=== PATIENT | female | born 1960 | race American Indian/Alaskan Native ===

== ENCOUNTER 2016-07-05 11:13 | Observation (INO) | payer MEDICAID ==
[2016-07-05 11:16] VITALS: BMI 24.1
--- NOTE | 2016-07-05 11:58 | C.PDOC ---
History Of Present Illness 55 y/o female, with PMHx of HTN and tobacco use, presents to ED with complaint of chest pain since yesterday. Patient reports episodes of sharp, left-sided chest pain, and cannot identify what brought them on or what makes them worse. She denies associated shortness of breath but reports that she felt like she was going to pass out yesterday with the onset of symptoms. Reports non- productive cough but denies fever. Patient states she has had no past cardiac workup; denies history of diabetes. Of note, patient also complains of atraumatic right elbow pain x 2 weeks. Also c/o constipation, associated with bright red blood per rectum with straining (hx of hemorrhoids). Denies abdominal pain, headache, dizziness, lightheadedness, nausea, vomiting, diarrhea , urinary symptoms. Time Seen by Provider: 07/05/16 11:39 Chief Complaint (Nursing): Abdominal Pain History Per: Patient History/Exam Limitations: no limitations Onset/Duration Of Symptoms: Days Current Symptoms Are (Timing): Still Present Associated Symptoms: Chest Pain. denies: Fever, Chills, Diarrhea Recent travel outside of the [place]: No Past Medical History Reviewed: Historical Data, Nursing Documentation, Vital Signs Vital Signs: Last Vital Signs Temp 97.9 F 07/05/16 11:17 Pulse 103 H 07/05/16 11:17 Resp 18 07/05/16 11:17 BP 140/91 H 07/05/16 11:17 Pulse Ox 100 07/05/16 12:17 - Medical History PMH: HTN Family History: States: Unknown Family Hx - Social History Hx Alcohol Use: No Hx Substance Use: No - Immunization History Hx Tetanus Toxoid Vaccination: No Hx Influenza Vaccination: No Hx Pneumococcal Vaccination: No Review Of Systems Except As Marked, All Systems Reviewed And Found Negative. Constitutional: Negative for: Fever, Chills Eyes: Negative for: Pain, Vision Change Cardiovascular: Positive for: Chest Pain, Light Headedness. Negative for: Palpitations, Orthopnea, Edema Respiratory: Positive for: Cough. Negative for: Shortness of Breath, SOB with Excertion, Sputum, Wheezing Gastrointestinal: Positive for: Other (bright red blood with straining). Negative for: Nausea, Vomiting, Abdominal Pain, Diarrhea, Constipation Genitourinary: Negative for: Dysuria, Hematuria, Pelvic Pain Musculoskeletal: Positive for: Other (right elbow pain ). Negative for: Neck Pain Skin: Negative for: Rash Neurological: Negative for: Weakness, Numbness, Headache, Dizziness Psych: Negative for: Depression Physical Exam - Physical Exam Appears: Well, Non-toxic, No Acute Distress Skin: Normal Color, Warm, Dry Head: Atraumatic, Normacephalic Eye(s): bilateral: Normal Inspection, PERRL, EOMI Neck: Supple Chest: Symmetrical Cardiovascular: Rhythm Regular, No Murmur Respiratory: Normal Breath Sounds, No Accessory Muscle Use, No Rales, No Rhonchi , No Wheezing Gastrointestinal/Abdominal: Soft, No Tenderness, No Mass, No Distention, No Guarding, No Rebound Back: Normal Inspection, No CVA Tenderness Extremity: Normal ROM, No Tenderness, No Pedal Edema, No Calf Tenderness, Capillary Refill (< 2 sec. ), No Deformity, No Swelling, Other (R arm: no tenderness or swelling to right elbow. Normal ROM. Distal pulses intact) Extremity: Bilateral: Atraumatic, Normal Color And Temperature Pulses: Left Radial: Normal, Right Radial: Normal Neurological/Psych: Oriented x3, Normal Speech, Normal Cognition Gait: Steady ED Course And Treatment ECG: Interpreted By Me ECG Rhythm: Sinus Rhythm ECG Interpretation: Normal Interpretation Of ECG: no ST/T wave changes, normal intervals Rate From EC (bpm) O2 Sat by Pulse Oximetry: 100 (RA) Pulse Ox Interpretation: Normal Medical Decision Making Medical Decision Making: Patient is complaining of chest pain, intermittent and sharp x 1 day. No prior cardiac workup and hx of HTN and tobacco use. Differential dx includes but not limited to: acs, pna, ptx, pe. Due to elevated heart rate on arrival, cannot use the perc rule to r/o pe. Will get ekg, labs, and cxray. Due to risk factors (age, htn, and tobacco use) combined with no prior cardiac evaluation, would recommend tele observation for chest pain if initial ED workup is negative Plan: * Aspirin 325mg * EKG, CXR * Bloodwork * Reassess Had extensive conversation with the patient about the need to follow-up as outpatient for constipation/blood per rectum for colonoscopy and chronic R elbow pain that could be tenditis. Instructed follow up with PMD for constipation and chronic right arm pain. Will do cardiac workup. 12:48PM Cxray negative for consolidation, infiltrate or ptx. No cardiomegaly. Pending labs. WIll sign out to Blaise Moeller MD to follow-up. Disposition - Disposition Disposition Time: 12:49 Condition: FAIR Additional Instructions: Follow up with your PMD for chronic R elbow pain. Follow-up with PMD for referral for colonoscopy due to hemorrhoids and rectal bleeding - Clinical Impression Clinical Impression: Rectal bleed, Elbow pain, right, Chest pain - Scribe Statement The provider has reviewed the documentation as recorded by the Ratna Jenkins Provider Scribe Attestation: All medical record entries made by the Ratna were at my direction and personally dictated by me. I have reviewed the chart and agree that the record accurately reflects my personal performance of the history, physical exam, medical decision making, and the department course for this patient. I have also personally directed, reviewed, and agree with the discharge instructions and disposition.
[2016-07-05] MEDS ORDERED: Aspirin 325 mg EC Tablets PO ONE (12:13)
[2016-07-05 12:41] LABS: BASO # 0.1 K/uL (0.0-0.2); BASO % 1.3 % (0.0-2.0); EOS # 0.3 K/uL (0.0-0.7); EOS % 2.8 % (0.0-4.0); HEMATOCRIT 42.1 % (34.0-47.0); LYMPH # 4.2 K/uL (1.0-4.3); LYMPH % 46.4 % (20.0-40.0); MEAN CELL VOLUME 86.4 fL (81.0-99.0); MEAN CORPUSCULAR HGB CONC 32.5 g/dL (33.0-37.0); MONO # 0.4 K/uL (0.0-0.8); MONO % 4.7 % (0.0-10.0); NRBC % 0.1 % (0.0-2.0); RED CELL DISTRIBUTION WIDTH 13.7 % (11.5-14.5); WHITE BLOOD COUNT 9.1 K/uL (4.8-10.8)
--- NOTE | 2016-07-05 12:48 | RAD ---
HISTORY: chest pain COMPARISON: No prior. FINDINGS: LUNGS: Mild venous congestion. PLEURA: No significant pleural effusion identified, no pneumothorax apparent. CARDIOVASCULAR: Normal. OSSEOUS STRUCTURES: No significant abnormalities. VISUALIZED UPPER ABDOMEN: Normal. OTHER FINDINGS: None. IMPRESSION: Mild venous congestion.
[2016-07-05 12:50] LABS: CHLORIDE 96 mmol/L (98-107)
[2016-07-05 12:51] LABS: SODIUM 141 mmol/L (132-148)
[2016-07-05 12:53] LABS: ALB/GLOB RATIO 1.3 (1.0-2.1); ALKALINE PHOSPHATASE 87 U/L (38-126); ALT/SGPT 15 U/L (9-52); AST/SGOT 17 U/L (14-36); BILIRUBIN,TOTAL 0.5 mg/dL (0.2-1.3); BLOOD UREA NITROGEN 10 mg/dL (7-17); CARBON DIOXIDE 26 mmol/L (22-30); GFR AFRICAN-AMERICAN > 60; TOTAL PROTEIN 6.9 g/dL (6.3-8.3)
[2016-07-05 12:54] LABS: CALCIUM 9.6 mg/dl (8.6-10.4); GLUCOSE,RANDOM 89 mg/dL (65-105)
--- NOTE | 2016-07-05 16:17 | CP.PCM.HP ---
History of Present Illness - History of Present Illness History of Present Illness: 55-year-old female with past medical history of hypertension and tobacco use presented to the ED with complaints of chest pain since yesterday. Patient reports episodes of sharp, left-sided chest pain and cannot identify what brought them on or what makes them worse. She denies associated shortness of breath but reports that she felt like she was going to pass out yesterday with the onset of symptoms. Reports nonproductive cough but denies fever. Patient states she has had no past cardiac workup, denies history of diabetes. Patient also complains of atraumatic right elbow pain since 2 week. Also complains of constipation associated with bright red blood per rectum with straining ( history of hemorrhoids). Denies abdominal pain, headache, dizziness, lightheadedness, nausea, vomiting, diarrhea, urinary symptoms. Present on Admission - Present on Admission Any Indicators Present on Admission: No Past Patient History - Past Social History Smoking Status: Light Smoker < 10 Cigarettes Daily - CARDIAC Hx Hypertension: Yes - MUSCULOSKELETAL/RHEUMATOLOGICAL Hx Musculoskeletal Disorders: Yes Hx Herniated Disk: Yes - PSYCHIATRIC Hx Substance Use: No - SURGICAL HISTORY Hx Surgeries: Yes Hx Herniorrhaphy: Yes Hx Orthopedic Surgery: Yes (BL foot surgery) Hx Tubal Ligation: Yes Meds Home Medications: Home Medication List Medication Instructions Recorded Confirmed Type Aspirin [Aspirin Chewable] 81 mg PO DAILY 07/07/16 Rx Famotidine [Pepcid] 20 mg PO BID #60 tab 07/07/16 Rx Isosorbide Mononitrate [Imdur] 60 mg PO DAILY #30 tab 07/07/16 Rx Losartan [Cozaar] 100 mg PO DAILY #30 tab 07/07/16 Rx Rosuvastatin Calcium [Crestor] 20 mg PO HS #30 tab 07/07/16 Rx Allergies/Adverse Reactions: Allergies Allergy/AdvReac Type Severity Reaction Status Date / Time No Known Allergies Allergy Verified 07/05/16 11:43 Physical Exam - Constitutional Appears: Well - Head Exam Head Exam: ATRAUMATIC, NORMAL INSPECTION, NORMOCEPHALIC - Eye Exam Eye Exam: EOMI, Normal appearance, PERRL Pupil Exam: NORMAL ACCOMODATION, PERRL - ENT Exam ENT Exam: Mucous Membranes Moist, Normal Exam - Neck Exam Neck exam: Positive for: Normal Inspection - Respiratory Exam Respiratory Exam: Decreased Breath Sounds - Cardiovascular Exam Cardiovascular Exam: REGULAR RHYTHM, +S1, +S2 - GI/Abdominal Exam GI & Abdominal Exam: Diminished Bowel Sounds, Soft - Rectal Exam Rectal Exam: Deferred Results - Vital Signs Recent Vital Signs: Last Vital Signs Temp 98 F 07/05/16 15:56 Pulse 88 07/05/16 15:56 Resp 19 07/05/16 15:56 BP 140/91 H 07/05/16 11:17 Pulse Ox 100 07/05/16 15:56 - Labs Result Diagrams: 07/05/16 12:37 07/05/16 12:37 Assessment & Plan (1) Chest pain Status: Acute (2) Chronic lower back pain Status: Acute (3) Elbow pain, right Status: Acute (4) Knee sprain Status: Acute (5) Rectal bleed Status: Acute - Assessment and Plan (Free Text) Plan: protonix lovenox rosuvastatin asp plavix sonia sme
[2016-07-05 18:12] VITALS: RESP 20
--- NOTE | 2016-07-05 18:32 | CON ---
DATE: 07/05/2016 REASON FOR CONSULTATION: Chest pain. HISTORY OF PRESENT ILLNESS: The patient is a 55-year-old -[place] female who has no signific ant prior cardiac history. She presented because of chest pain since yesterday, which is sharp in na ture. The patient denies any associated shortness of breath or radiation of chest discomfort. The p atient has history of rectal bleeding in the recent past. The patient underwent colonoscopy, but arredondo s not know the findings at that time. SOCIAL HISTORY: The patient is a smoker and occasional drinker. MEDICATIONS: The patient received aspirin 325 mg once a day. At home the patient is on own antihype rtensive agents as well as vitamin D. REVIEW OF SYSTEMS: No fever or chills. No vomiting or diarrhea. PHYSICAL EXAMINATION: GENERAL: The patient is a middle-aged female who does not appear to be in any acute distress. VITAL SIGNS: Blood pressure 140/91, heart rate 103, temperature 97.9, respiration 18. HEENT: Normocephalic. NECK: No JVD. CHEST: Clear. HEART: S1, S2 regular. EXTREMITIES: No edema. LABORATORY DATA: D-dimer is within normal limits. SMA-7 is within normal limits except for chloride of 96, anion gap of 23. One set of troponin is negative. CBC: WBC 9.1 hemoglobin 15.7, hematocrit 42.1, platelet count 281,000. Chest x-ray was unremarkable. EKG has not been located yet and I dave l review it once it is available. ASSESSMENT: 1. Chest pain, myocardial infarction is ruled out. 2. History of hypertension. 3. History of rectal bleeding in the past. RECOMMENDATIONS: Admit the patient to telemetry, monitor daily EKGs and serial cardiac enzymes. Sta rt aspirin 81 mg once a day and atenolol 25 mg once a day, Crestor 20 mg once a day. Obtain an echoc ardiogram and urine for drug screen. Gentry Wheeler MD cc: [id number] TT: 07/05/2016 18:30:57 Confirmation # [id number] Dictation # [id number] sakshi
--- NOTE | 2016-07-06 09:21 | CP.PCM.PN ---
Subjective - Date & Time of Evaluation Date of Evaluation: 07/06/16 Time of Evaluation: 11:40 - Subjective Subjective: clinically same Objective - Vital Signs/Intake and Output Vital Signs (last 24 hours): Temp Pulse Resp BP Pulse Ox 98.0 F 63 20 145/100 H 100 07/06/16 07:26 07/06/16 00:00 07/06/16 07:26 07/06/16 07:26 07/06/16 07:26 - Medications Medications: Current Medications Aspirin (Aspirin Chewable) 81 mg PO DAILY [facility] Atenolol (Tenormin) 25 mg PO DAILY [facility] Last Admin: 07/05/16 16:41 Dose: 25 mg Enoxaparin Sodium (Lovenox) 40 mg SC DAILY [facility] Famotidine (Pepcid) 20 mg PO BID [facility] Last Admin: 07/05/16 18:01 Dose: 20 mg Pneumococcal Polyvalent Vaccine (Pneumovax 23 Vaccine) 0.5 ml IM .ONCE ONE Stop: 07/08/16 10:01 Rosuvastatin Calcium (Crestor) 20 mg PO HS [facility] Last Admin: 07/05/16 21:02 Dose: 20 mg - Constitutional Appears: Well - Head Exam Head Exam: ATRAUMATIC, NORMAL INSPECTION, NORMOCEPHALIC - Eye Exam Eye Exam: EOMI, Normal appearance, PERRL Pupil Exam: NORMAL ACCOMODATION, PERRL - ENT Exam ENT Exam: Mucous Membranes Moist, Normal Exam - Neck Exam Neck Exam: Full ROM, Normal Inspection. absent: Lymphadenopathy - Respiratory Exam Respiratory Exam: Decreased Breath Sounds - Cardiovascular Exam Cardiovascular Exam: REGULAR RHYTHM, +S1, +S2 - GI/Abdominal Exam GI & Abdominal Exam: Soft, Diminished Bowel Sounds - Rectal Exam Rectal Exam: Deferred Assessment and Plan - Assessment and Plan (Free Text) Plan: Consultation with retail attendant ecg negative for TN CXR Mild venous congestion Aspirin Atenolol Crestor Lovenox
[2016-07-06] MEDS ORDERED: Pantoprazole 40 mg EC Tab PO SCH (10:00)
[2016-07-06] MEDS: Enoxaparin 40 mg Syringe SC SCH (10:02)
--- NOTE | 2016-07-06 11:08 | CP.PCM.PN ---
<Lizy Espinoza - Last Filed: 07/06/16 10:52> Subjective - Date & Time of Evaluation Date of Evaluation: 07/06/16 Time of Evaluation: 09:00 - Subjective Subjective: Medicine Progress Note Patient seen and examined. Patient states that her chest pain is still present but that it has improved since admission yesterday. The patient was informed that her UDS was positive for cocaine and educated on the risks of using cocaine while on a beta-liliana. Patient states that she does not use cocaine but that her cigarettes may have been laced because her friends snort cocaine around her. Pt understands the risks of cocaine use including cardiac arrest. Patient states that the chest pain increases during inspiration and hurts with palpation of her left chest. Pt went for ECHO today. She denies fever, chills , nausea, vomiting, diarrhea, abdominal pain, shortness of breath, and cough. Objective - Vital Signs/Intake and Output Vital Signs (last 24 hours): Temp Pulse Resp BP Pulse Ox 98.0 F 63 20 145/100 H 100 07/06/16 07:26 07/06/16 00:00 07/06/16 07:26 07/06/16 07:26 07/06/16 07:26 - Medications Medications: Current Medications Aspirin (Aspirin Chewable) 81 mg PO DAILY [facility] Last Admin: 07/06/16 10:01 Dose: 81 mg Atenolol (Tenormin) 25 mg PO DAILY [facility] Last Admin: 07/06/16 10:02 Dose: 25 mg Enoxaparin Sodium (Lovenox) 40 mg SC DAILY [facility] Last Admin: 07/06/16 10:02 Dose: 40 mg Famotidine (Pepcid) 20 mg PO BID [facility] Last Admin: 07/06/16 10:01 Dose: 20 mg Pneumococcal Polyvalent Vaccine (Pneumovax 23 Vaccine) 0.5 ml IM .ONCE ONE Stop: 07/08/16 10:01 Rosuvastatin Calcium (Crestor) 20 mg PO [facility] Last Admin: 07/05/16 21:02 Dose: 20 mg - Constitutional Appears: Non-toxic, No Acute Distress - Head Exam Head Exam: ATRAUMATIC, NORMOCEPHALIC - Eye Exam Eye Exam: EOMI, Normal appearance - ENT Exam ENT Exam: Mucous Membranes Moist - Neck Exam Neck Exam: Normal Inspection - Respiratory Exam Respiratory Exam: Clear to Ausculation Bilateral, NORMAL BREATHING PATTERN. absent: Rhonchi, Wheezes, Respiratory Distress - Cardiovascular Exam Cardiovascular Exam: REGULAR RHYTHM, +S1, +S2. absent: Irregular Rhythm, Murmur - GI/Abdominal Exam GI & Abdominal Exam: Soft, Normal Bowel Sounds - Extremities Exam Extremities Exam: Normal Inspection - Neurological Exam Neurological Exam: Alert, Awake, Oriented x3 - Psychiatric Exam Psychiatric exam: Normal Affect, Normal Mood - Skin Skin Exam: Dry, Intact, Normal Color, Warm Assessment and Plan - Assessment and Plan (Free Text) Assessment: 1. Chest pain ROMIs negative x3 EKG- NSR, possible LAE Chest Xray- mild venous congestion Meter Shop Supervisor Dr Wheeler consulted- help appreciated ECHO done today, will f/u report Started patient on ASA 81mg PO daily, Atenolol 25mg PO daily, and Crestor 20mg PO daily f/u TSH, lipid panel, HgA1C 2. HTN Start Atenolol 25mg PO daily Monitor and adjust as needed 3. Cocaine use Counseled on cessation and cardiac risks of using drug 4. Tobacco use Counseled on smoking cessation 5. Prophylactic measures Lovenox 40mg SC daily Pepcid 20mg PO BID [facility] <Davidson Stratton S - Last Filed: 07/06/16 20:32> Objective - Vital Signs/Intake and Output Vital Signs (last 24 hours): Temp Pulse Resp BP Pulse Ox 97.7 F 64 20 156/98 H 96 07/06/16 16:00 07/06/16 16:00 07/06/16 16:00 07/06/16 16:00 07/06/16 16:00 - Medications Medications: Current Medications Acetaminophen (Tylenol 325mg Tab) 650 mg PO Q6 PRN PRN Reason: for headache Last Admin: 07/06/16 19:08 Dose: 650 mg Aspirin (Aspirin Chewable) 81 mg PO DAILY [facility] Last Admin: 07/06/16 10:01 Dose: 81 mg Enoxaparin Sodium (Lovenox) 40 mg SC DAILY [facility] Last Admin: 07/06/16 10:02 Dose: 40 mg Famotidine (Pepcid) 20 mg PO BID [facility] Last Admin: 07/06/16 18:04 Dose: 20 mg Isosorbide Mononitrate (Imdur) 60 mg PO DAILY [facility] Last Admin: 07/06/16 15:02 Dose: 60 mg Losartan Potassium (Cozaar) 50 mg PO DAILY [facility] Last Admin: 07/06/16 15:02 Dose: 50 mg Pneumococcal Polyvalent Vaccine (Pneumovax 23 Vaccine) 0.5 ml IM .ONCE ONE Stop: 07/08/16 10:01 Rosuvastatin Calcium (Crestor) 20 mg PO HS [facility] Last Admin: 07/05/16 21:02 Dose: 20 mg Attending/Attestation - Attestation I have personally seen and examined this patient.: Yes I have fully participated in the care of the patient.: Yes I have reviewed all pertinent clinical information, including history, physical exam and plan: Yes Notes (Text): 07/06/16 20:32 pt admittediwht ches pain positive for cocaine seen by job trainer
[2016-07-06 12:13] LABS: THYROID STIMULATING HORMONE 1.09 mIU/L (0.46-4.68)
--- NOTE | 2016-07-06 14:46 | PN ---
DATE: 07/06/2016 SUBJECTIVE: The patient denies any chest pain. PHYSICAL EXAMINATION: VITAL SIGNS: Blood pressure 145/100, heart rate 63, temperature 98, respirations 20. HEENT: Normocephalic. NECK: No JVD. CHEST: Clear. HEART: S1, S2 regular. EXTREMITIES: No edema. LABORATORIES: Three sets of troponins are negative. Urine drug screen is positive for cocaine. EKG revealed sinus rhythm at a rate of 82, possible left atrial enlargement. ASSESSMENT: 1. Chest pain, myocardial infarction was ruled out. 2. Cocaine abuse. 3. Uncontrolled hypertension. RECOMMENDATIONS: Continue aspirin 81 mg once a day, Crestor 20 mg once a day. Discontinue atenolol and start Cozaar at 50 mg once a day. I will follow echocardiographic study performed today. Gentry Wheeler MD cc: [id number] TT: 07/06/2016 14:45:48 Confirmation # [id number] Dictation # [id number] reina
--- NOTE | 2016-07-06 16:47 | CARD ---
APPROVED REPORT EXAM: Two-dimensional and M-mode echocardiogram with Doppler and color Doppler. Other Information Quality : GoodRhythm : INDICATION Chest Pain RISK FACTORS Hypertension Smoking M-Mode DIMENSIONS RVDd1.64 (2.1-3.2cm)Left Atrium (MM)2.79 (2.5-4.0cm) IVSd1.25 (0.7-1.1cm)Aortic Root3.04 (2.2-3.7cm) LVDd5.25 (4.0-5.6cm)Aortic Cusp Exc.1.94 (1.5-2.0cm) PWd1.03 (0.7-1.1cm)FS (%) 28 % LVDs3.80 (2.0-3.8cm)LVEF (%)53 (>50%) Aortic Valve AI P 1/2 Odph553ew Mitral Valve MV E Jjuhcmij59.5cm/sMV A Mlyaawjw92.9cm/sE/A ratio0.6 TDI E/Lateral E'0.0E/Medial E'0.0 Tricuspid Valve TR Peak Etyqtghf823sc/sTR Peak Gr.06hnWhUDDS25oaHa LEFT VENTRICLE The left ventricle is normal size. There is borderline to mild concentric left ventricular hypertrophy. The left ventricular function is normal. The left ventricular ejection fraction is within the normal range. There is normal LV segmental wall motion. Transmitral Doppler flow pattern is abnormal. RIGHT VENTRICLE The right ventricle is normal size. ATRIA The left atrium size is normal. The right atrium size is normal. AORTIC VALVE There is trace aortic regurgitation. MITRAL VALVE Mitral regurgitation is trace. TRICUSPID VALVE There is mild tricuspid regurgitation. <Conclusion> Normal LV systolic function. Diastolic dysfunction. Trace MR. Trace AR. Mild TR. Normal chamber size.
--- NOTE | 2016-07-06 17:12 | CARD ---
APPROVED REPORT EKG Measurement Heart [id number] <Conclusion> Normal sinus rhythm Possible Left atrial enlargement Borderline ECG
[2016-07-06 23:57] VITALS: TEMP 97.6; O2SAT 100
[2016-07-07 08:13] VITALS: PULSE 65
[2016-07-07] MEDS: Enoxaparin 40 mg Syringe SC SCH (10:15)
--- NOTE | 2016-07-07 11:51 | CP.PCM.PN ---
Subjective - Date & Time of Evaluation Date of Evaluation: 07/07/16 Time of Evaluation: 11:40 - Subjective Subjective: clinically same Objective - Vital Signs/Intake and Output Vital Signs (last 24 hours): Temp Pulse Resp BP Pulse Ox 97.6 F 65 20 170/106 H 100 07/07/16 08:11 07/07/16 08:11 07/07/16 08:11 07/07/16 08:11 07/07/16 08:11 - Medications Medications: Current Medications Acetaminophen (Tylenol 325mg Tab) 650 mg PO Q6 PRN PRN Reason: for headache Last Admin: 07/07/16 08:10 Dose: 650 mg Aspirin (Aspirin Chewable) 81 mg PO DAILY [facility] Last Admin: 07/07/16 10:14 Dose: 81 mg Enoxaparin Sodium (Lovenox) 40 mg SC DAILY [facility] Last Admin: 07/07/16 10:15 Dose: 40 mg Famotidine (Pepcid) 20 mg PO BID [facility] Last Admin: 07/07/16 10:14 Dose: 20 mg Isosorbide Mononitrate (Imdur) 60 mg PO DAILY [facility] Last Admin: 07/07/16 10:14 Dose: 60 mg Lactulose (Enulose) 20 gm PO BID [facility] Last Admin: 07/07/16 10:14 Dose: 20 gm Losartan Potassium (Cozaar) 100 mg PO DAILY [facility] Last Admin: 07/07/16 10:15 Dose: 100 mg Pneumococcal Polyvalent Vaccine (Pneumovax 23 Vaccine) 0.5 ml IM .ONCE ONE Stop: 07/08/16 10:01 Rosuvastatin Calcium (Crestor) 20 mg PO [facility] Last Admin: 07/06/16 21:30 Dose: 20 mg - Constitutional Appears: Well - Head Exam Head Exam: ATRAUMATIC, NORMAL INSPECTION, NORMOCEPHALIC - Eye Exam Eye Exam: EOMI, Normal appearance, PERRL Pupil Exam: NORMAL ACCOMODATION, PERRL - ENT Exam ENT Exam: Mucous Membranes Moist, Normal Exam - Neck Exam Neck Exam: Full ROM, Normal Inspection. absent: Lymphadenopathy - Respiratory Exam Respiratory Exam: Decreased Breath Sounds - Cardiovascular Exam Cardiovascular Exam: REGULAR RHYTHM, +S1, +S2 - GI/Abdominal Exam GI & Abdominal Exam: Soft, Diminished Bowel Sounds - Rectal Exam Rectal Exam: Deferred Assessment and Plan - Assessment and Plan (Free Text) Plan: pt. can be discharge to home today sonia. meds as ordered adviced to stay away from drugs
[2016-07-07 12:22] VITALS: BP 166/88
--- NOTE | 2016-07-07 12:36 | PN ---
DATE: 07/07/2016 The patient denies any chest pain. No reported rectal bleeding. PHYSICAL EXAMINATION: VITAL SIGNS: Blood pressure 170/106, heart rate 65, temperature 97.6, respirations 20. HEENT: Normocephalic. NECK: No JVD. CHEST: Clear. HEART: S1, S2 regular. EXTREMITIES: No edema. Echocardiographic study report revealed normal left ventricular systolic function, diastolic dysfunct ion, mild tricuspid regurgitation. ASSESSMENT: 1. Status post cocaine abuse. 2. Chest pain, myocardial infarction is ruled out. 3. Rectal bleeding. RECOMMENDATIONS: Continue aspirin, Cozaar, Crestor, Imdur, and subcutaneous Lovenox at 40 mg once a day. The patient was strongly advised to abstain from future cocaine abuse. Gentry Wheeler MD cc: [id number] TT: 07/07/2016 12:35:51 Confirmation # [id number] Dictation # [id number] reina
--- NOTE | 2016-07-07 18:08 | CP.PCM.PN ---
Subjective - Date & Time of Evaluation Date of Evaluation: 07/07/16 Time of Evaluation: 11:00 - Subjective Subjective: Alert, orientedx3, NAD. Denies sob or chest pains. Objective - Vital Signs/Intake and Output Vital Signs (last 24 hours): Temp Pulse Resp BP Pulse Ox 97.6 F 65 20 166/88 H 100 07/07/16 08:11 07/07/16 08:11 07/07/16 08:11 07/07/16 12:22 07/07/16 08:11 Assessment and Plan - Assessment and Plan (Free Text) Assessment: Patient is seen and examined with DR Ofe Stratton this am. Alert and orientedx3, EDI negativex3, denies sob or chest pains. Discharged home as per DR Ofe Stratton with BP meds. Advised to stay away from street drugs. To follow up with PMD in 1 week.
[2016-07-08] MEDS ORDERED: Pneumococcal 23-Valent Vaccine IM ONE (10:00)
== END 2016-07-07 13:55 | disposition home or self-care (01) ==
LOC: C.ER 11:13 → C.9E 14:55 → C.5T 17:02
PROVIDERS: ADMIT Internal Medicine Nephrology; ATTEND Internal Medicine Nephrology
DX: R07.9 Chest pain, unspecified (principal); F14.10 Cocaine abuse, uncomplicated; I10 Essential (primary) hypertension; F17.210 Nicotine dependence, cigarettes, uncomplicated
CPT/HCPCS: 36415; 71010; 80053; 80061; 80324; 80345; 80346; 80349; 80353; 80358; 80361; 82550; 82553; 83036; 83880; 83992; 84443; 84484; 85025; 85378; 93005; 93306; 99285; G0378; J1650

== ENCOUNTER 2016-11-07 11:40 | Emergency (ER) | payer MEDICAID, OTHER ==
[2016-11-07 11:48] VITALS: RESP 20; BMI 22.6
[2016-11-07] MEDS ORDERED: Dexamethasone 4 mg/1 ml IM STA (12:13)
[2016-11-07] MEDS ORDERED: Dexamethasone 4 mg/1 ml ONE (12:20)
--- NOTE | 2016-11-07 12:23 | C.PDOC ---
History Of Present Illness 55 y/o female brought to ED by EMS with complaints of low back pain. Patient states she was leaving her building and slipped on the stairs landing on her back. At ED patient complaints of lower back pain radiating to the bilateral hips. Patient reports hips are worse with movement. Patient denies loc, vision changes, dizziness, numbness, weakness, or bowel/bladder incontinence. - HPI Time Seen by Provider: 11/07/16 11:51 Chief Complaint (Nursing): Trauma History Per: Patient History/Exam Limitations: no limitations Onset/Duration Of Symptoms: Hrs Pain Scale Rating Of: 7 Past Medical History Reviewed: Historical Data, Nursing Documentation, Vital Signs Vital Signs: Last Vital Signs Temp 98.0 F 11/07/16 14:00 Pulse 96 H 11/07/16 14:00 Resp 20 11/07/16 14:00 BP 130/92 H 11/07/16 14:00 Pulse Ox 97 11/07/16 14:00 - Medical History PMH: HTN Denies: Chronic Kidney Disease Family History: States: Unknown Family Hx - Social History Hx Alcohol Use: No Hx Substance Use: No - Immunization History Hx Tetanus Toxoid Vaccination: No Hx Influenza Vaccination: No Hx Pneumococcal Vaccination: No Review Of Systems Except As Marked, All Systems Reviewed And Found Negative. Cardiovascular: Negative for: Chest Pain Gastrointestinal: Negative for: Nausea, Vomiting, Abdominal Pain Genitourinary: Negative for: Dysuria, Frequency Musculoskeletal: Positive for: Back Pain Skin: Negative for: Rash Physical Exam - Physical Exam Appears: Non-toxic, No Acute Distress Skin: Normal Color, Warm, Dry, No Rash, No Ecchymosis Head: Atraumatic, Normacephalic Eye(s): bilateral: Normal Inspection, PERRL, EOMI Oral Mucosa: Moist Neck: Normal ROM, No Midline Cervical Tenderness, No Paracervical Tenderness, Supple Chest: Symmetrical, No Ecchymosis, No Subcutaneous Emphysema Cardiovascular: Rhythm Regular, No Friction Rub, No Murmur Respiratory: Normal Breath Sounds, No Rales, No Rhonchi, No Wheezing Gastrointestinal/Abdominal: Soft, No Tenderness, No Guarding, No Rebound Back: No CVA Tenderness, Other (paralumbar tenderness) Extremity: Normal ROM, No Pedal Edema, No Swelling Neurological/Psych: Oriented x3, Normal Speech, Normal Cranial Nerves, Normal Motor, Normal Sensation Gait: Steady ED Course And Treatment O2 Sat by Pulse Oximetry: 96 (RA) Pulse Ox Interpretation: Normal Medical Decision Making Medical Decision Making: Results were given to the patient. The patient was offered admission for possible acute vs chronic compression L1 fracture but the patient refused. Risks and benefits of admission and discharge were discussed with the patient but the patient still refused. On re-exam, the patient reports improvement of symptoms. Lungs are CTA, heart is RRR, abdomen is soft, non-tender and tolerating PO well. Ambulatory in the ED with steady gait. Follow up with the medical doctor within 1-2 days. Return if worsened. Patient was instructed to return to the ED if there was any worsening of pain, difficulty walking, numbness, or weakness. Patient reports that she has a history of herniated discs and is going to follow up with her Orthopedic surgeon. Disposition Counseled Patient/Family Regarding: Studies Performed, Diagnosis, Need For Followup, Rx Given - Disposition Referrals: Jose Vincent MD [Non-Staff] - Disposition: HOME/ ROUTINE Disposition Time: 13:13 Condition: FAIR Additional Instructions: Follow up with the medical doctor and your Ortho surgeon as scheduled without fail. Return if worsened. 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 - Scribe Statement The provider has reviewed the documentation as recorded by the Ratna Machuca All medical record entries made by the Ratna were at my direction and personally dictated by me. I have reviewed the chart and agree that the record accurately reflects my personal performance of the history, physical exam, medical decision making, and the department course for this patient. I have also personally directed, reviewed, and agree with the discharge instructions and disposition.
--- NOTE | 2016-11-07 12:29 | C.PDOC ---
- HPI Time Seen by Provider: 11/07/16 11:51 Chief Complaint (Nursing): Trauma Past Medical History Vital Signs: Last Vital Signs Temp 98 F 11/07/16 11:46 Pulse 82 11/07/16 11:46 Resp 20 11/07/16 11:46 BP 152/109 H 11/07/16 11:46 Pulse Ox 96 11/07/16 11:46 - Medical History PMH: HTN Denies: Chronic Kidney Disease Family History: States: Unknown Family Hx - Social History Hx Alcohol Use: No Hx Substance Use: No - Immunization History Hx Tetanus Toxoid Vaccination: No Hx Influenza Vaccination: No Hx Pneumococcal Vaccination: No ED Course And Treatment O2 Sat by Pulse Oximetry: 96 Disposition - Disposition Forms: [employer] (Pashto)
--- NOTE | 2016-11-07 12:45 | RAD ---
PROCEDURE: Radiographs of the Lumbar Spine. HISTORY: fall, low back pain COMPARISON: No prior. FINDINGS: BONES: The lumbar curvature is normal however there is anterior wedging of the L1 vertebral body anteriorly with cortical or irregularity noted at the anterior margin of the inferior endplate suspicious for a potential acute compression fracture though the ages ultimately indeterminate. Follow-up MRI may be useful for greater characterization here. The remaining vertebral bodies are normal in height with mild multilevel spondylosis appreciated currently at the mid lumbar levels. No spondylolisthesis. DISC SPACES: Overall disc heights are preserved. Endplate sclerosis and spondylosis indicate multilevel degenerate disease however. OTHER FINDINGS: None. IMPRESSION: 1. A mild anterior wedge compression fracture of L1 is identified, potentially acute, but ultimately of indeterminate age fracture follow-up MRI for greater characterization. MRI will provide greater soft tissue resolution including the disc space than CT. 2. Mild multilevel degenerative disease.
[2016-11-07] MEDS ORDERED: Lidocaine 5% Patch TD STA (13:16)
[2016-11-07] MEDS ORDERED: Lidocaine 5% Patch TD ONE (13:18)
[2016-11-07 14:09] VITALS: BP 130/92; PULSE 96; TEMP 98
[2016-11-07 15:01] VITALS: O2SAT 96
== END 2016-11-07 14:09 | disposition home or self-care (01) ==
LOC: C.ER 11:40
DX: S32.010A Wedge compression fracture of first lumbar vertebra, initial encounter for closed fracture (principal); W10.9XXA Fall (on) (from) unspecified stairs and steps, initial encounter; Y92.039 Unspecified place in apartment as the place of occurrence of the external cause
CPT/HCPCS: 72100; 96372; 99285; J1100; J1885

== ENCOUNTER 2017-07-02 12:27 | Emergency (ER) | payer MEDICAID ==
[2017-07-02 12:44] VITALS: RESP 18; O2SAT 99; BMI 23.3
--- NOTE | 2017-07-02 13:23 | C.PDOC ---
History Of Present Illness 56 year old female with a pmhx of lower back injury and a herniated disc, presents to the ED for evaluation of left lower calf pain that has worsened over 1 month. Patient currently wears a back brace and was instructed by her orthopedic doctor to take the brace off sometimes. Pain has progressively worsened. She is now unable to walk long distances without pain. Patient denies any trauma, injury, weakness or sensory vascular deficits of the left leg. Time Seen by Provider: 07/02/17 12:44 Chief Complaint (Nursing): Lower Extremity Problem/Injury History Per: Patient Onset/Duration Of Symptoms: Days Current Symptoms Are (Timing): Still Present Past Medical History Vital Signs: Last Vital Signs Temp 98.1 F 07/02/17 12:42 Pulse 99 H 07/02/17 12:42 Resp 18 07/02/17 12:42 BP 120/80 07/02/17 12:42 Pulse Ox 99 07/02/17 13:46 - Medical History PMH: HTN Denies: Chronic Kidney Disease Family History: States: Unknown Family Hx - Social History Hx Alcohol Use: No Hx Substance Use: No - Immunization History Hx Tetanus Toxoid Vaccination: No Hx Influenza Vaccination: No Hx Pneumococcal Vaccination: No Review Of Systems Except As Marked, All Systems Reviewed And Found Negative. Musculoskeletal: Positive for: Leg Pain (left calf pain) Neurological: Negative for: Weakness, Numbness Physical Exam - Physical Exam Appears: Well, Non-toxic, No Acute Distress Skin: Normal Color, Warm, No Rash Head: Normacephalic Eye(s): bilateral: PERRL Neck: Supple Gastrointestinal/Abdominal: Soft, No Tenderness, No Distention, No Guarding Back: No CVA Tenderness, Paraspinal Tenderness (diffuse lumbar), Other (wears back brace) Extremity: Normal ROM, No Pedal Edema, Calf Tenderness (left), No Deformity, No Swelling Pulses: Left Dorsalis Pedis: Normal, Right Dorsalis Pedis: Normal Neurological/Psych: Oriented x3, Normal Speech, Normal Motor, Normal Sensation, Normal Reflexes ED Course And Treatment O2 Sat by Pulse Oximetry: 99 (RA) Pulse Ox Interpretation: Normal - CT Scan/US Doppler US LLE Other Rad Studies (CT/US): Interpreted By Me, Read By Radiologist CT/US Interpretation: (-) DVT LLE Progress Note: Patient was given Neurontin 300 mg PO, and Ultram 50 mg PO. Ordered Venous Duplex Scan of left lower extremity to rule out DVT. Delay in US for 2 hours. On re-eval, pt is afebrile, hemodynamicaly stable. Non-toxic. Ambulatory in Ed with stable gait. LLE: FAROM, no neurovascular deficits. Neurologicaly intact. DOppler US results (-) DVT LLE. Pt has clinical findings c/w lumbar radiculopathy. Pt advised. ref. to f/u with PMD, Ortho and PM in 2-3 dyas for re-eavl. return to ED if any worsening or new changes. Disposition Counseled Patient/Family Regarding: Studies Performed, Diagnosis, Need For Followup, Rx Given - Disposition Referrals: Rodríguez Ojeda [Staff Provider] - Disposition Time: 15:40 Condition: STABLE Additional Instructions: Take pain medication as prescribed Follow up with PMD, PM and Spinal Surgery in 2-3 days for further evaluation and pain treatment. Return to ED if any new changes. 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 - Scribe Statement The provider has reviewed the documentation as recorded by the Scribe (Qi Dodson) All medical record entries made by the Scribe were at my direction and personally dictated by me. I have reviewed the chart and agree that the record accurately reflects my personal performance of the history, physical exam, medical decision making, and the department course for this patient. I have also personally directed, reviewed, and agree with the discharge instructions and disposition.
[2017-07-02] MEDS ORDERED: Oxycodone/Acetaminophen 5/325 mg Tab PO STA (15:03)
[2017-07-02] MEDS ORDERED: Oxycodone/Acetaminophen 5/325 mg Tab ONE (15:06)
[2017-07-02 15:54] VITALS: BP 132/84; PULSE 80; TEMP 97.7
--- NOTE | 2017-07-03 11:02 | VASCLAB ---
PROCEDURE: Left Lower Extremity Venous Duplex Exam. HISTORY: Left calf pain PRIORS: None. TECHNIQUE: Left common femoral, femoral, popliteal and posterior tibial, peroneal and great saphenous veins were evaluated. Flow was assessed with color Doppler, compressibility, assessment of phasic flow and augmentation response. Report prepared by BAUTISTA Barber, RVT FINDINGS: LEFT: 1. Common Femoral Vein: 1.1. Compressibility - Fully compressible: Thrombus - None : Flow - Phasic: Augmentation -Normal: Reflux - None. 2. Femoral Vein: 2.1. Compressibility - Fully compressible: Thrombus - None: Flow - Phasic: Augmentation -Normal: Reflux - None. 3. Popliteal Vein: 3.1. Compressibility - Fully compressible: Thrombus - None: Flow - Phasic: Augmentation -Normal: Reflux - None. 4. Posterior Tibial Vein: 4.1. Compressibility - Fully compressible: Thrombus - None: Flow - Phasic: Augmentation -Normal: Reflux - None. 5. Peroneal Vein: 5.1. Compressibility - Fully compressible: Thrombus - None: Flow - Phasic: Augmentation -Normal: Reflux - None. 6. Great Saphenous Vein: 6.1. Compressibility - Fully compressible: Thrombus - None: Flow - Phasic: Augmentation - Normal: Reflux - None. OTHER FINDINGS: IMPRESSION: No evidence of deep or superficial vein thrombosis of the left lower extremity with excellent venous flow. Normal valve function noted of the left side. Normal venous flow noted in the right common femoral vein.
== END 2017-07-02 16:02 | disposition home or self-care (01) ==
LOC: C.ER 12:27
DX: M54.16 Radiculopathy, lumbar region (principal)